=== PATIENT | female | born 1990 | race Hispanic/Latino ===

== ENCOUNTER 2018-10-05 15:54 | Emergency (ER) | payer MEDICAID ==
[2018-10-05 16:26] VITALS: BMI 35.2
[2018-10-05 16:30] VITALS: BP 139/82; PULSE 83; RESP 20; TEMP 98.7; O2SAT 99
== END 2018-10-06 10:29 | disposition left against medical advice (07) ==
LOC: ED 15:54
DX: Z02.89 Encounter for other administrative examinations (principal); R10.9 Unspecified abdominal pain